=== PATIENT | male | born 1980 | race Caucasian/White ===

== ENCOUNTER 2017-04-10 19:22 | Emergency (ER) | payer SELFPAY ==
[2017-04-10 21:31] LABS: BASOPHIL % 0.5 % (0-2); PLATELET COUNT 232 x10^3mcL (130-400); RED CELL DISTRIBUTION WIDTH 12.4 % (11.5-14.5)
[2017-04-10 21:32] LABS: CALCIUM 8.1 mg/dL (8.5-10.1); CARBON DIOXIDE 26.3 mmol/L (21-32); CHLORIDE SERUM 103 mmol/L (98-107); CREATININE SERUM 1.1 mg/dL (0.7-1.3); GFR1 > 60 mL/min; GLUCOSE SERUM 103 mg/dL (74-106); POTASSIUM SERUM 3.7 mmol/L (3.5-5.1); SODIUM SERUM 132 mmol/L (136-145)
[2017-04-10 21:36] LABS: ALBUMIN 3.8 g/dL (3.4-5.0); ALKALINE PHOSPHATASE 84 U/L (46-116); ALT/SGPT 97 U/L (16-63); AST/SGOT 18 U/L (15-37); BILIRUBIN TOTAL 0.55 mg/dL (0.20-1.00); TOTAL PROTEIN, SERUM 7.5 g/dL (6.4-8.2)
[2017-04-10 22:52] VITALS: BP 139/81
== END 2017-04-10 22:52 | disposition home or self-care (01) ==
LOC: ED 19:22
PROVIDERS: Emergency Medicine
DX: R25.1 Tremor, unspecified (principal); F10.10 Alcohol abuse, uncomplicated
CPT/HCPCS: G0480; J2060; J3411; J3475; J3490; J7030